=== PATIENT | female | born 1975 | race Caucasian/White ===

== ENCOUNTER 2019-04-04 15:33 | Emergency (ER) | payer SELFPAY ==
[~2019-04-04] VITALS: Ht 162.6 cm; Wt 59.1 kg
[~2019-04-04 15:33] MED LIST: AMBIEN 10MG10 MG PO; AMBIEN CR 12.12.5 MG PO; CIPRO 500MG TA500 MG PO; DILAUDID 2MG TAB2 MG PO; FENTANYL 50MCG TP; LORTAB 5/500 501 TAB PO; MS CONTIN 330 MG/TAB PO; NORCO 325 MG-7.1 TAB PO; OXYCODONE20 MG PO; OXYCONTIN30 MG PO; PENICILLIN250 MG PO; PERCOCET 325 MG1 TA2 PO; REMERON SOLTAB15 MG PO; ROXICODONE30 MG PO
[2019-04-04 16:04] VITALS: BP 119/86; TEMP 98.2
[2019-04-04] MEDS ORDERED: AMOXICILLIN 8751 TAB PO (17:39)
[2019-04-04 18:05] VITALS: PULSE 87
== END 2019-04-04 18:08 | disposition home or self-care (01) ==
LOC: COL.ER 15:33
DX: S02.5XXA Fracture of tooth (traumatic), initial encounter for closed fracture (principal); X58.XXXA Exposure to other specified factors, initial encounter

== ENCOUNTER 2020-01-10 07:54 | Emergency (ER) | payer SELFPAY ==
[~2020-01-10] VITALS: Ht 162.6 cm; Wt 59.1 kg
[~2020-01-10 07:54] MED LIST changes: +AMOXICILLIN 8751 TAB PO
[2020-01-10 08:15] VITALS: BP 138/84; TEMP 97.8
[2020-01-10] MEDS ORDERED: PERCOCET 325 MG1 TA2 PO (08:55)
[2020-01-10] MEDS ORDERED: FLEXERIL 1010 MG/TAB PO (08:55)
[2020-01-10] MEDS ORDERED: MEDROL 4MG DOSPA4 MG PO (08:55)
[2020-01-10 09:23] VITALS: PULSE 100
== END 2020-01-10 09:23 | disposition home or self-care (01) ==
LOC: COL.ER 07:54
DX: S39.012A Strain of muscle, fascia and tendon of lower back, initial encounter (principal); M54.16 Radiculopathy, lumbar region; M54.32 Sciatica, left side; F17.210 Nicotine dependence, cigarettes, uncomplicated; Z87.442 Personal history of urinary calculi; Z90.710 Acquired absence of both cervix and uterus; W10.9XXA Fall (on) (from) unspecified stairs and steps, initial encounter
CPT/HCPCS: J1885

== ENCOUNTER → 2020-01-31 | Outpatient (CLI) | payer SELFPAY ==
[~2020-01-31] MED LIST changes: +FLEXERIL 1010 MG/TAB PO; +MEDROL 4MG DOSPA4 MG PO
== END ==
LOC: COL.RAD 13:03
DX: M51.36 Other intervertebral disc degeneration, lumbar region (principal); M51.26 Other intervertebral disc displacement, lumbar region; M48.061 Spinal stenosis, lumbar region without neurogenic claudication; K80.20 Calculus of gallbladder without cholecystitis without obstruction

== ENCOUNTER 2021-08-03 15:00 | Emergency (ER) | payer SELFPAY | END 2021-08-03 15:37 | disposition left against medical advice (07) | LOC: COL.ER 15:00 | DX: R52 Pain, unspecified (principal) ==